=== PATIENT | female | born 1965 | race Two or more races ===

== ENCOUNTER 2021-12-11 10:15 | Outpatient (CLI) | payer OTHER | END 2021-12-11 10:16 | disposition home or self-care (01) | LOC: MAMO-SONO 10:15 | DX: R10.2 Pelvic and perineal pain (principal); R19.00 Intra-abdominal and pelvic swelling, mass and lump, unspecified site; N60.12 Diffuse cystic mastopathy of left breast; N60.11 Diffuse cystic mastopathy of right breast; Z85.43 Personal history of malignant neoplasm of ovary; Z12.31 Encounter for screening mammogram for malignant neoplasm of breast ==

== ENCOUNTER 2021-12-26 09:40 | Outpatient (CLI) | payer OTHER | END 2021-12-26 09:51 | disposition home or self-care (01) | LOC: MRI 09:40 | PROVIDERS: ATTEND General Practice | DX: R19.00 Intra-abdominal and pelvic swelling, mass and lump, unspecified site (principal); R10.2 Pelvic and perineal pain | CPT/HCPCS: 72197; Q9965; 72196 ==

== ENCOUNTER 2021-12-30 16:27 | Emergency (ER) | payer OTHER ==
[~2021-12-30] VITALS: Ht 165.1 cm; Wt 81.6 kg
[2021-12-30] MEDS ORDERED: CLONAZEPAM0.5 MG PO (18:22)
[2021-12-30] MEDS ORDERED: ESTAZOLAM2 MG PO (18:22)
[2021-12-30] MEDS ORDERED: LAMICTAL200 MG PO (18:23)
[2021-12-30] MEDS ORDERED: TRAZODONE HCL50 MG PO (18:23)
[2021-12-30] MEDS ORDERED: ROSUVASTATIN CA20 MG PO (18:24)
[2021-12-30] MEDS ORDERED: ARIPIPRAZOLE10 MG PO (18:25)
[2021-12-30] MEDS ORDERED: OPTIMAL D3 M350 MCG PO (18:25)
== END 2021-12-31 01:33 | disposition home or self-care (01) ==
LOC: ER 16:27
DX: R10.2 Pelvic and perineal pain (principal); N39.0 Urinary tract infection, site not specified

== ENCOUNTER 2022-01-05 12:41 | Outpatient (CLI) | payer OTHER ==
[~2022-01-05 12:41] MED LIST: ARIPIPRAZOLE10 MG PO; CLONAZEPAM0.5 MG PO; ESTAZOLAM2 MG PO; LAMICTAL200 MG PO; OPTIMAL D3 M350 MCG PO; ROSUVASTATIN CA20 MG PO; TRAZODONE HCL50 MG PO
== END 2022-01-05 12:42 | disposition home or self-care (01) ==
LOC: LAB 12:41
PROVIDERS: ATTEND Radiology Diagnostic Radiology
DX: C56.1 Malignant neoplasm of right ovary (principal)

== ENCOUNTER 2022-01-08 08:09 | Outpatient (CLI) | payer OTHER | END 2022-01-08 08:18 | disposition home or self-care (01) | LOC: TOM 08:09 | DX: C56.1 Malignant neoplasm of right ovary (principal) | CPT/HCPCS: 71270; 74178; Q9965 ==